=== PATIENT | female | born 1985 | race Caucasian/White ===

== ENCOUNTER → 2018-10-28 | Emergency (ER) | payer OTHER ==
[2018-10-28] MEDS: DEXAMETHASONE 10 MG/ML 1 ML INJ IM (12:52)
[2018-10-28] MEDS: LIDOCAINE 1% (MPF) 5 ML VIAL INFIL (12:52)
[2018-10-28] MEDS: CEFTRIAXONE 1 GM INJ IM (12:52)
== END | disposition home or self-care (01) ==
LOC: FTE 11:35
DX: T63.441A Toxic effect of venom of bees, accidental (unintentional), initial encounter (principal); L03.114 Cellulitis of left upper limb
CPT/HCPCS: 96372; 99284-25